=== PATIENT | female | born 1980 | race Caucasian/White ===

== ENCOUNTER 2022-07-24 17:32 | Emergency (ER) | payer MEDICAID ==
[~2022-07-24] VITALS: Ht 154 cm; Wt 59.0 kg
[2022-07-24] MEDS ORDERED: CLIN-144 PO (18:23)
[2022-07-24] MEDS ORDERED: ACHD5005 PO (18:23)
--- NOTE | 2022-07-24 18:23 | ED EENT ---
History of Present Illness General Chief Complaint: Dental Problems/Pain Stated Complaint: JAW PAIN Nursing Triage Note: left lower jaw pain, broken tooth per pt, pain started 07/23/22 and worse today Source: patient Exam Limitations: no limitations (DHARA RIVERA) History of Present Illness Date Seen by Provider: July 24, 2022 Time Seen by Provider: 18:20 Initial Comments Patient is a 41-year-old female presents ED with left lower dental pain. Patient states she broke one of her left lower teeth about a week ago while eating. She did not have much pain after. Pain started to develop yesterday. Woke up with swelling and redness to the left lower face. She has been taken Tylenol and ibuprofen without much improvement. She denies fever, chills, headache, dizziness, neck pain or swelling. Pain with eating. (DHARA RIVERA) Allergies and Home Medications Patient Home Medication List Home Medication List Reviewed: Yes (DHARA RIVERA) Clindamycin HCl (Clindamycin HCl) 300 Mg Capsule, 300 MG PO TID Prescribed by: ARACELI MARRERO on 07/24/221822 Hydrocodone/Acetaminophen (Hydrocodone-Acetamin 5-325 mg) 5 Mg-325 Mg Tablet, 1 TAB PO Q4H PRN for PAIN-MODERATE (5-7) Prescribed by: ARACELI MARRERO on 07/24/221822 Review of Systems Review of Systems Constitutional: No chills, No diaphoresis, No malaise, No weakness Eyes: Denies Blurred Vision, Denies Decreased Acuity Ears: Denies Dizziness Nose: denies clots, denies bloody discharge, denies clear discharge Mouth: denies loose teeth; pain; denies previous injury; other Throat: denies pain (Dental pain), denies swelling, denies discharge Respiratory: No cough, No dyspnea on exertion Cardiovascular: No chest pain Gastrointestinal: No abdominal pain, No nausea, No vomiting Musculoskeletal: No back pain, No joint pain Skin: No change in color, No change in hair/nails (DHARA RIVERA) Past Nueavfy-Ausuqm-Ltvvev Hx Patient Social History Tobacco Use?: No Substance use?: Yes Alcohol Use?: No (DHARA RIVERA) Physical Exam Vital Signs Vital Signs - First Documented 07/24/22 17:45 Temp 36.0 Pulse 109 Resp 18 B/P (MAP) 112/78 (89) Pulse Ox 97 O2 Delivery Room Air (GRUPO CARPIO MD) Height, Weight, BMI Height: '" Weight: lbs. oz. kg; 24.00 BMI Method: General Appearance: WD/WN, no apparent distress Eyes: bilateral eye normal inspection, bilateral eye PERRL, bilateral eye EOMI Ears: bilateral ear auricle normal, bilateral ear canal normal, bilateral ear TM normal Nose: normal inspection Mouth/Throat: normal mouth inspection, pharynx normal, other (Right lower first molar Dill 3 fracture. Gum swelling and erythema. 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 Gum swelling and erythema without fluctuant mass. mild swelling to the left lower jaw. States she has been taking Tylenol and ibuprofen without much improvement. She is afebrile with stable vital signs. Discussed with patient concerning for developing infection likely an apical abscess that starting to develop. Will discharge with clindamycin. Few days worth of hydrocodone but recommend taking ibuprofen and/or Tylenol for pain. did offer dental block she refused. Recommend dental outpatient follow-up for further evaluation. If redness or swelling or pain increases to return back to ED. no evidence of George angina. Oropharynx patent. (DHARA RIVERA) Impression Primary Impression: Pain, dental Disposition: 01 HOME, SELF-CARE Condition: Stable Departure-Patient Inst. Decision time for Depature: 18:22 (DHARA RIVERA) Referrals: [facility],LOCAL PHYSICIAN (PCP) Primary Care Physician Patient Instructions: Dental Pain Scripts Hydrocodone/Acetaminophen (Hydrocodone-Acetamin 5-325 mg) 5 Mg-325 Mg Tablet 1 TAB PO Q4H PRN for PAIN-MODERATE (5-7), #6 TAB Prov: DHARA RIVERA 07/24/22 Clindamycin HCl (Clindamycin HCl) 300 Mg Capsule 300 MG PO TID for 10 Days, #30 CAP Prov: DHARA RIVERA 07/24/22 ATTENDING PHYSICIAN NOTE: I was physically present as attending physician in the emergency department during the care of this patient, but I was not directly involved in the decision making or delivery of care for this patient. (GRUPO CARPIO MD) DHARA RIVERA July 24, 2022 18:23 GRUPO CARPIO MD July 24, 2022 19:30
== END 2022-07-24 18:30 | disposition home or self-care (01) ==
LOC: ER 17:36
DX: S02.5XXA Fracture of tooth (traumatic), initial encounter for closed fracture (principal); X58.XXXA Exposure to other specified factors, initial encounter
CPT/HCPCS: 99283